=== PATIENT | female | born 1975 | race Hispanic/Latino ===

== ENCOUNTER → 2018-02-23 | Outpatient (CLI) | payer OTHER, MEDICARE ==
[~2018-02-23] VITALS: Ht 7.6 cm; Wt 109.8 kg
[~2018-02-23] MED LIST: ALPR2TAB2 PO; AMLO5TAB2 PO; CETI-101 PO; CHOL500051 PO; DULO60CA44 PO; FLUT220HFA IH; LOSA1TAB37 PO; METO100T14 PO; OMEP20CA10 PO; PSYL0.4C2 PO; albuter; albuterol IH
== END | disposition home or self-care (01) ==
LOC: DTH 08:33
PROVIDERS: ATTEND Surgery
DX: E11.9 Type 2 diabetes mellitus without complications (principal); E66.09 Other obesity due to excess calories
CPT/HCPCS: 97802

== ENCOUNTER → 2018-03-17 | Outpatient (CLI) | payer OTHER, MEDICARE | END | disposition home or self-care (01) | LOC: DTH 03-15 08:40 | PROVIDERS: ATTEND Surgery | DX: E11.9 Type 2 diabetes mellitus without complications (principal); E66.09 Other obesity due to excess calories | CPT/HCPCS: 97803 ==

== ENCOUNTER 2019-05-28 12:35 | Emergency (ER) | payer OTHER, MEDICARE ==
[~2019-05-28 12:35] MED LIST changes: +ACET-66 PO; +ALBU8.5H8 IH; -AMLO5TAB2 PO; -DULO60CA44 PO; +IBUP-2353 PO; +METO-409 PO; -METO100T14 PO; +MULT-1077 PO; +OMEP-50 PO; -OMEP20CA10 PO; -PSYL0.4C2 PO; +ZOLP10TA6 PO; -albuter; -albuterol IH
[2019-05-28 13:42] LABS: APPEARANCE,URINE Clear (CLEAR); BILIRUBIN,URINE Negative (NEGATIVE); COLOR,URINE Yellow (YELLOW); GLUCOSE, URINE (UA) Negative (NEGATIVE); KETONES,URINE Negative (NEGATIVE); LEUKOCYTE ESTERASE ,URINE Large (NEGATIVE); NITRATE,URINE Negative (NEGATIVE); OCCULT BLOOD,URINE Trace (NEGATIVE); PH,URINE 5.5 (5.0-8.0); PROTEIN,URINE Negative (NEGATIVE); UROBILINOGEN,URINE 0.2 mg/dL (0.2-1.0)
[2019-05-28 13:49] LABS: BACTERIA,URINE Few /HPF (None Seen); RBC,URINE 0-1 /HPF (0-1); SQUAMOUS EPITHELIAL CELL,UR Rare /HPF (0-2)
[2019-05-28] MEDS ORDERED: ALPRAZOLAM 0.25 MG TABLET ONE (14:06)
== END 2019-05-28 14:26 | disposition home or self-care (01) ==
LOC: EDH 12:35
DX: N39.0 Urinary tract infection, site not specified (principal); F41.9 Anxiety disorder, unspecified
CPT/HCPCS: 81001

== ENCOUNTER 2022-08-23 09:26 | Emergency (ER) | payer MEDICARE ==
[~2022-08-23] VITALS: Ht 160 cm; Wt 69.4 kg
[~2022-08-23 09:26] MED LIST changes: -CETI-101 PO; +CETI-89 PO; -IBUP-2353 PO; +IBUP-2784 PO; -OMEP-50 PO; +OMEP20CA12 PO
[2022-08-23 09:27] VITALS: BP 148/104
== END 2022-08-23 12:05 | disposition left against medical advice (07) ==
LOC: EDH 09:26
DX: F41.9 Anxiety disorder, unspecified (principal); Z53.21 Procedure and treatment not carried out due to patient leaving prior to being seen by health care provider

== ENCOUNTER 2023-05-08 17:44 | Emergency (ER) | payer OTHER, MEDICARE ==
[2023-05-08] MEDS ORDERED: HYDROCODONE/ACETAMINOPHEN 5/325 MG TAB ONE (18:11)
== END 2023-05-08 19:30 | disposition home or self-care (01) ==
LOC: EDH 17:44
DX: S63.591A Other specified sprain of right wrist, initial encounter (principal); S60.211A Contusion of right wrist, initial encounter; W18.39XA Other fall on same level, initial encounter; Y93.89 Activity, other specified; Y92.89 Other specified places as the place of occurrence of the external cause; Y99.8 Other external cause status
CPT/HCPCS: 29125; 73110